=== PATIENT | female | born 1945 | race Caucasian/White ===

== ENCOUNTER 2022-03-20 11:02 | Inpatient (IN) | payer MEDICARE ==
[2022-03-20] MEDS ORDERED: Amiodarone 150 MG/3 ML VIAL ONE ×2 (11:28→17:03)
[2022-03-20 12:09] LABS: #Eosinphils 0.1 thou/uL (0.0-0.7); #Lymphocytes 1.4 thou/uL (1.20-3.40); #Monocytes 0.6 thou/uL (0.11-0.59); #Neutrophils 5.3 thou/uL (1.40-6.50); %Basophils 0.4 % (0.0-1.0); %Eosinophils 1.6 % (0.0-10.0); %Lymphocytes 18.3 % (21.0-51.0); %Monocytes 8.3 % (0.0-10.0); %Neutrophils 71.4 % (42.0-75.0); Hemoglobin 9.8 g/dL (12.0-16.0); Mean Corpuscular HGB CONC 30.7 g/dL (32.0-36.0); Mean Corpuscular Hemoglobin 22.2 pg (27.0-31.0); Mean Corpuscular Volume 72.2 fL (78.0-98.0); Mean Platelet Volume 9.3 fL (7.4-10.4); Platelet Count 267 thou/uL (130-400); RBC Distribution Width 17.1 % (11.5-14.5); Red Blood Cell (RBC) Count 4.43 mill/uL (4.20-5.40); White Blood Cell (WBC) Count 7.4 thou/uL (4.8-10.8)
[2022-03-20] MEDS ORDERED: Aspirin Chewable 81 MG TAB ONE (12:16)
[2022-03-20 12:19] LABS: INR-International Normal Ratio 1.1; PTT 33.7 sec (22.9-36.1); Prothrombin Time 13.8 sec (12.0-14.7)
[2022-03-20 12:42] LABS: ALT (SGPT) Less than 7 U/L (8-55); AST (SGOT) 11 U/L (5-34); Albumin 3.5 g/dL (3.4-4.8); Alkaline Phosphatase 77 U/L (40-110); Anion Gap 14 mmol/L (10-20); BUN (Urea Nitrogen) 19 mg/dL (9.8-20.1); Bilirubin, Total 0.4 mg/dL (0.2-1.2); Calc. Creatinine Clearance 0 mL/min (70-130); Carbon Dioxide 23 mmol/L (23-31); Chloride 104 mmol/L (98-107); Glucose 223 mg/dL (83-110); Magnesium 1.8 mg/dL (1.6-2.6); Potassium 3.5 mmol/L (3.5-5.1); Protein, Total 6.5 g/dL (5.8-8.1); Sodium 137 mmol/L (136-145)
[2022-03-20 15:34] LABS: Troponin I 0.026 ng/mL (< 0.028)
[2022-03-20 15:56] LABS: SARS-CoV-2 NAA Rapid Test Not Detected (NotDetected)
[2022-03-20] MEDS ORDERED: Dextrose 50% Abboject 50 ML SYRINGE SLOW IVP PRN (17:00)
[2022-03-20] MEDS ORDERED: HumaLOG 300 UNITS/3 ML VIAL SC PRN (17:00)
[2022-03-20] MEDS ORDERED: Dextrose 5% in Water 1,000 ML IV PRN (17:00)
[2022-03-20 18:21] VITALS: BMI 26.6
[2022-03-20] MEDS: Amiodarone In Dextrose 200 ML IVPB SCH (18:29)
[2022-03-20 18:50] LABS: Troponin I 0.025 ng/mL (< 0.028)
[2022-03-20] MEDS: Senokot S 8.6-50 MG TAB PO SCH (21:58)
[2022-03-21] MEDS: Amiodarone In Dextrose 200 ML IVPB SCH (04:49)
[2022-03-21 05:05] LABS: ALT (SGPT) 9 U/L (8-55); AST (SGOT) 9 U/L (5-34); Albumin 3.3 g/dL (3.4-4.8); Alkaline Phosphatase 66 U/L (40-110); Anion Gap 13 mmol/L (10-20); BUN (Urea Nitrogen) 17 mg/dL (9.8-20.1); Bilirubin, Total 0.3 mg/dL (0.2-1.2); Calc. Creatinine Clearance 34 mL/min (70-130); Carbon Dioxide 24 mmol/L (23-31); Chloride 104 mmol/L (98-107); Globulin 2.7 g/dL (2.4-3.5); Glucose 229 mg/dL (83-110); Potassium 3.3 mmol/L (3.5-5.1); Sodium 138 mmol/L (136-145)
[2022-03-21] MEDS: HumaLOG 300 UNITS/3 ML VIAL SC PRN ×2 (06:43→18:09)
[2022-03-21] MEDS ORDERED: Potassium Chloride 20 MEQ TAB PO SCH (13:00)
[2022-03-21 15:07] LABS: Bilirubin Negative (Negative); Blood, Urine Trace (Negative); Clarity Extra Turbid (Clear); Glucose, Urine (Dipstick) 100 mg/dL (Negative); Ketone, Urine Trace mg/dL (Negative); Leukocyte Negative Leu/uL (Negative); Nitrite Negative (Negative); Protein, Urine (Dipstick) 100 mg/dL (Neg-Trace); Specific Gravity, Urine 1.027 (1.002-1.036); Urobilinogen Normal mg/dL (Less than 2); WBC/HPF 0-3 HPF (0-3); Yeast-Budding 2+ HPF (None Seen); pH, Urine 5.5 (5.0-9.0)
[2022-03-21] MEDS: Pramipexole Di-HCl 0.25 MG TAB PO SCH ×2 (15:08→20:22)
[2022-03-21] MEDS: Carbidopa/Levodopa 25-100 mg Tablet PO SCH ×2 (15:08→20:23)
[2022-03-21 15:16] LABS: Bacteria/HPF 2+ HPF (None Seen); Urine Culture Reflex No No; Yeast-Hyphae Rare HPF (None Seen)
[2022-03-21] MEDS: Amiodarone 450 MG in Dextrose 5% in Water 250 ML IVPB SCH (19:36)
[2022-03-21] MEDS: Sacubitril 49 MG/Valsartan 51 MG TABLET PO SCH (20:22)
[2022-03-21] MEDS: Senokot S 8.6-50 MG TAB PO SCH (20:22)
[2022-03-22 03:30] LABS: #Eosinphils 0.2 thou/uL (0.0-0.7); #Lymphocytes 1.5 thou/uL (1.20-3.40); #Monocytes 0.7 thou/uL (0.11-0.59); #Neutrophils 4.8 thou/uL (1.40-6.50); %Basophils 0.2 % (0.0-1.0); %Eosinophils 2.7 % (0.0-10.0); %Lymphocytes 20.5 % (21.0-51.0); %Monocytes 9.4 % (0.0-10.0); %Neutrophils 67.1 % (42.0-75.0); Hemoglobin 9.1 g/dL (12.0-16.0); Mean Corpuscular HGB CONC 31.1 g/dL (32.0-36.0); Mean Corpuscular Hemoglobin 22.9 pg (27.0-31.0); Mean Corpuscular Volume 73.6 fL (78.0-98.0); Mean Platelet Volume 9.6 fL (7.4-10.4); Platelet Count 265 thou/uL (130-400); RBC Distribution Width 17.7 % (11.5-14.5); Red Blood Cell (RBC) Count 3.96 mill/uL (4.20-5.40); White Blood Cell (WBC) Count 7.1 thou/uL (4.8-10.8)
[2022-03-22 03:55] LABS: Anion Gap 14 mmol/L (10-20); BUN (Urea Nitrogen) 12 mg/dL (9.8-20.1); Calc. Creatinine Clearance 40 mL/min (70-130); Calcium 8.3 mg/dL (7.8-10.44); Carbon Dioxide 23 mmol/L (23-31); Chloride 102 mmol/L (98-107); Glucose 286 mg/dL (83-110); Magnesium 1.5 mg/dL (1.6-2.6); Potassium 3.4 mmol/L (3.5-5.1); Sodium 136 mmol/L (136-145)
[2022-03-22] MEDS: Carbidopa/Levodopa 25-100 mg Tablet PO SCH ×3 (06:14→21:13)
[2022-03-22] MEDS: HumaLOG 300 UNITS/3 ML VIAL SC PRN ×3 (06:15→17:26)
[2022-03-22] MEDS ORDERED: Potassium Chloride 20 MEQ TAB PO SCH (07:30)
[2022-03-22] MEDS ORDERED: Electrolyte Replacement Protocol 1 EACH FS SCH (07:30)
[2022-03-22] MEDS ORDERED: Magnesium 2 GM/50 ML(in water) 2 GM in Premix Bag 1 BAG IVPB SCH (07:30)
[2022-03-22] MEDS ORDERED: Electrolyte Replacement Protocol FS PRN (07:45)
[2022-03-22] MEDS ORDERED: Insulin Glargine 30 UNITS/0.3 ML VIAL SC SCH ×2 (09:00)
[2022-03-22] MEDS: Magnesium Oxide 400 MG TAB PO SCH (09:44)
[2022-03-22] MEDS: Aspirin 81 mg Enteric Coated Tablet PO SCH (09:44)
[2022-03-22] MEDS: Pramipexole Di-HCl 0.25 MG TAB PO SCH ×3 (09:44→21:13)
[2022-03-22] MEDS: Sacubitril 49 MG/Valsartan 51 MG TABLET PO SCH ×2 (09:44→21:13)
[2022-03-22] MEDS: Heparin 5,000 UNITS/ML VIAL SC SCH ×2 (09:45→21:13)
[2022-03-22] MEDS: Polyethylene Glycol 3350 17 GM Packet PO SCH (09:46)
[2022-03-22] MEDS: Acetaminophen 325 MG TAB PO PRN (17:25)
[2022-03-22] MEDS: Atorvastatin Calcium 40 MG TAB PO SCH (21:13)
[2022-03-22] MEDS: Senokot S 8.6-50 MG TAB PO SCH (21:14)
[2022-03-23] MEDS: Ondansetron PF 4 MG/2 ML Vial IVP PRN (03:08)
[2022-03-23] MEDS: Amiodarone 450 MG in Dextrose 5% in Water 250 ML IVPB SCH (03:44)
[2022-03-23] MEDS: Carbidopa/Levodopa 25-100 mg Tablet PO SCH ×3 (05:26→22:06)
[2022-03-23 05:58] LABS: Anion Gap 13 mmol/L (10-20); BUN (Urea Nitrogen) 22 mg/dL (9.8-20.1); Calc. Creatinine Clearance 25 mL/min (70-130); Calcium 8.4 mg/dL (7.8-10.44); Carbon Dioxide 24 mmol/L (23-31); Chloride 103 mmol/L (98-107); Glucose 258 mg/dL (83-110); Magnesium 2.2 mg/dL (1.6-2.6); Potassium 4.1 mmol/L (3.5-5.1); Sodium 136 mmol/L (136-145)
[2022-03-23] MEDS: HumaLOG 300 UNITS/3 ML VIAL SC PRN ×3 (06:00→18:32)
[2022-03-23] MEDS ORDERED: Communication Order-Pharmacy FS SCH ×2 (08:45→17:15)
[2022-03-23] MEDS ORDERED: Sodium Chloride 0.9% 1,000 ML IV SCH (08:45)
[2022-03-23] MEDS ORDERED: Insulin Glargine 30 UNITS/0.3 ML VIAL SC SCH (09:00)
[2022-03-23] MEDS: Aspirin 81 mg Enteric Coated Tablet PO SCH (09:48)
[2022-03-23] MEDS: Magnesium Oxide 400 MG TAB PO SCH (09:53)
[2022-03-23] MEDS: Pramipexole Di-HCl 0.25 MG TAB PO SCH ×3 (09:54→22:07)
[2022-03-23] MEDS: Polyethylene Glycol 3350 17 GM Packet PO SCH (09:54)
[2022-03-23] MEDS: Heparin 5,000 UNITS/ML VIAL SC SCH ×2 (09:55→22:09)
[2022-03-23 17:05] LABS: Bacteria/HPF 2+ HPF (None Seen); Bilirubin Negative (Negative); Blood, Urine 2+ (Negative); Clarity Extra Turbid (Clear); Glucose, Urine (Dipstick) Normal (Negative); Ketone, Urine Negative (Negative); Leukocyte 500 Leu/uL (Negative); Nitrite Negative (Negative); Protein, Urine (Dipstick) 100 mg/dL (Neg-Trace); Specific Gravity, Urine 1.027 (1.002-1.036); Squamous Epithelial 0-3 HPF (0-3); Urobilinogen Normal mg/dL (Less than 2); Yeast-Budding 2+ HPF (None Seen); pH, Urine 5.5 (5.0-9.0)
[2022-03-23] MEDS ORDERED: methylPREDNISolone Sod Succ/PF 125 MG/2 ML VIAL IVP PRN (17:11)
[2022-03-23 17:13] LABS: Yeast-Hyphae 2+ HPF (None Seen)
[2022-03-23 17:14] LABS: Urine Culture Reflex Yes Yes
[2022-03-23] MEDS: Sodium Chloride 0.9% 1,000 ML IV SCH (18:28)
[2022-03-23] MEDS: Senokot S 8.6-50 MG TAB PO SCH (22:06)
[2022-03-23] MEDS: Atorvastatin Calcium 40 MG TAB PO SCH (22:07)
[2022-03-24] MEDS: Sodium Chloride 0.9% 1,000 ML IV SCH ×2 (04:45→14:48)
[2022-03-24 05:21] LABS: Anion Gap 13 mmol/L (10-20); BUN (Urea Nitrogen) 19 mg/dL (9.8-20.1); Calc. Creatinine Clearance 41 mL/min (70-130); Carbon Dioxide 24 mmol/L (23-31); Chloride 105 mmol/L (98-107); Potassium 3.6 mmol/L (3.5-5.1); Sodium 138 mmol/L (136-145)
[2022-03-24 05:22] LABS: Calcium 8.6 mg/dL (7.8-10.44); Glucose 127 mg/dL (83-110); Magnesium 1.6 mg/dL (1.6-2.6)
[2022-03-24] MEDS: Pramipexole Di-HCl 0.25 MG TAB PO SCH ×3 (05:27→21:08)
[2022-03-24] MEDS: Magnesium Oxide 400 MG TAB PO SCH (05:27)
[2022-03-24] MEDS: Aspirin 81 mg Enteric Coated Tablet PO SCH (05:27)
[2022-03-24] MEDS: Carbidopa/Levodopa 25-100 mg Tablet PO SCH ×3 (05:28→21:08)
[2022-03-24] MEDS ORDERED: diphenhydrAMINE 50 MG CAP PO SCH (06:00)
[2022-03-24] MEDS ORDERED: Famotidine 40 MG/4 ML VIAL SLOW IVP SCH (06:00)
[2022-03-24] MEDS: Amiodarone 200 MG TAB PO SCH (08:50)
[2022-03-24] MEDS ORDERED: Heparin 10,000 UNITS/ 10 ML VIAL ONE (10:59)
[2022-03-24] MEDS ORDERED: Verapamil 5 MG/2 ML VIAL ONE (10:59)
[2022-03-24] MEDS ORDERED: Nitroglycerin 100MG/250ML BOT 250 ML ONE (10:59)
[2022-03-24] MEDS ORDERED: Famotidine/PF 20 mg/2ml Vial ONE (10:59)
[2022-03-24] MEDS ORDERED: Lidocaine 1% (PF) 30 ML VIAL ONE (11:01)
[2022-03-24] MEDS: Polyethylene Glycol 3350 17 GM Packet PO SCH (11:19)
[2022-03-24] MEDS ORDERED: methylPREDNISolone Sod Succ/PF 125 MG/2 ML VIAL IVP PRN (11:22)
[2022-03-24] MEDS ORDERED: Magnesium 2 GM/50 ML(in water) 2 GM in Premix Bag 1 BAG IVPB SCH (11:45)
[2022-03-24] MEDS: Senokot S 8.6-50 MG TAB PO SCH (21:08)
[2022-03-24] MEDS: Atorvastatin Calcium 40 MG TAB PO SCH (21:08)
[2022-03-25] MEDS: Acetaminophen 325 MG TAB PO PRN (00:18)
[2022-03-25] MEDS: Sodium Chloride 0.9% 1,000 ML IV SCH (00:25)
[2022-03-25 04:56] LABS: #Eosinphils 0.2 thou/uL (0.0-0.7); #Lymphocytes 1.8 thou/uL (1.20-3.40); #Monocytes 0.6 thou/uL (0.11-0.59); #Neutrophils 3.5 thou/uL (1.40-6.50); %Basophils 0.2 % (0.0-1.0); %Eosinophils 3.2 % (0.0-10.0); %Monocytes 9.6 % (0.0-10.0); Mean Corpuscular HGB CONC 31.5 g/dL (32.0-36.0); Mean Corpuscular Hemoglobin 22.9 pg (27.0-31.0); Mean Corpuscular Volume 72.6 fL (78.0-98.0); Mean Platelet Volume 9.4 fL (7.4-10.4); Platelet Count 287 thou/uL (130-400); RBC Distribution Width 17.9 % (11.5-14.5); Red Blood Cell (RBC) Count 3.95 mill/uL (4.20-5.40); White Blood Cell (WBC) Count 6.1 thou/uL (4.8-10.8)
[2022-03-25 05:19] LABS: Anion Gap 13 mmol/L (10-20); BUN (Urea Nitrogen) 12 mg/dL (9.8-20.1); Calc. Creatinine Clearance 48 mL/min (70-130); Calcium 8.5 mg/dL (7.8-10.44); Carbon Dioxide 21 mmol/L (23-31); Chloride 106 mmol/L (98-107); Glucose 232 mg/dL (83-110); Magnesium 1.8 mg/dL (1.6-2.6); Potassium 4.2 mmol/L (3.5-5.1); Sodium 136 mmol/L (136-145)
[2022-03-25] MEDS: Carbidopa/Levodopa 25-100 mg Tablet PO SCH ×3 (06:15→20:54)
[2022-03-25] MEDS ORDERED: Magnesium 2 GM/50 ML(in water) 2 GM in Premix Bag 1 BAG IVPB SCH (08:00)
[2022-03-25] MEDS: Amiodarone 200 MG TAB PO SCH (09:42)
[2022-03-25] MEDS: Aspirin 81 mg Enteric Coated Tablet PO SCH (09:42)
[2022-03-25] MEDS: Magnesium Oxide 400 MG TAB PO SCH (09:42)
[2022-03-25] MEDS: Pramipexole Di-HCl 0.25 MG TAB PO SCH ×3 (09:42→20:54)
[2022-03-25] MEDS: Polyethylene Glycol 3350 17 GM Packet PO SCH (09:43)
[2022-03-25] MEDS: Sacubitril 49 MG/Valsartan 51 MG TABLET PO SCH ×2 (11:32→20:54)
[2022-03-25] MEDS: HumaLOG 300 UNITS/3 ML VIAL SC PRN ×2 (11:37→20:55)
[2022-03-25] MEDS ORDERED: Enoxaparin Sodium 40 MG/0.4 ML SYRINGE SC SCH (13:45)
[2022-03-25] MEDS ORDERED: methylPREDNISolone Acetate 40 mg/ml Vial IM SCH (16:15)
[2022-03-25] MEDS: Senokot S 8.6-50 MG TAB PO SCH (20:54)
[2022-03-25] MEDS: Atorvastatin Calcium 40 MG TAB PO SCH (20:54)
[2022-03-26] MEDS: Acetaminophen 325 MG TAB PO PRN (01:43)
[2022-03-26] MEDS: Carbidopa/Levodopa 25-100 mg Tablet PO SCH ×3 (05:58→21:17)
[2022-03-26] MEDS: HumaLOG 300 UNITS/3 ML VIAL SC PRN ×2 (06:35→11:41)
[2022-03-26] MEDS ORDERED: Insulin Glargine 30 UNITS/0.3 ML VIAL SC SCH (09:15)
[2022-03-26] MEDS: Aspirin 81 mg Enteric Coated Tablet PO SCH (09:23)
[2022-03-26] MEDS: Pramipexole Di-HCl 0.25 MG TAB PO SCH ×3 (09:23→21:16)
[2022-03-26] MEDS: Amiodarone 200 MG TAB PO SCH (09:23)
[2022-03-26] MEDS: Sacubitril 49 MG/Valsartan 51 MG TABLET PO SCH ×2 (09:23→21:17)
[2022-03-26] MEDS: Magnesium Oxide 400 MG TAB PO SCH (09:23)
[2022-03-26] MEDS: Polyethylene Glycol 3350 17 GM Packet PO SCH (09:24)
[2022-03-26] MEDS: Enoxaparin Sodium 40 MG/0.4 ML SYRINGE SC SCH (09:24)
[2022-03-26] MEDS: Insulin Glargine 30 UNITS/0.3 ML VIAL SC SCH (10:11)
[2022-03-26] MEDS: HYDROcodone/Acetaminophen 7.5/325 mg Tablet PO PRN ×2 (16:44→21:19)
[2022-03-26] MEDS ORDERED: diphenhydrAMINE 50 MG/ML VIAL IVP SCH (17:45)
[2022-03-26] MEDS: Atorvastatin Calcium 40 MG TAB PO SCH (21:16)
[2022-03-26] MEDS: Senokot S 8.6-50 MG TAB PO SCH (21:17)
[2022-03-27 04:45] LABS: Anion Gap 14 mmol/L (10-20); BUN (Urea Nitrogen) 11 mg/dL (9.8-20.1); Calc. Creatinine Clearance 51 mL/min (70-130); Calcium 8.8 mg/dL (7.8-10.44); Carbon Dioxide 23 mmol/L (23-31); Chloride 104 mmol/L (98-107); Glucose 256 mg/dL (83-110); Potassium 5.3 mmol/L (3.5-5.1); Sodium 136 mmol/L (136-145)
[2022-03-27 05:19] LABS: Band 6 % (5-11); Eosinophils 2 % (0-10); Hemoglobin 10.1 g/dL (12.0-16.0); Hypochromia SLIGHT = 6-15 cells (100X) (0-5/hpf); Lymphocytes 14 % (21-51); MDiff Complete? YES; Mean Corpuscular HGB CONC 29.1 g/dL (32.0-36.0); Mean Corpuscular Hemoglobin 22.4 pg (27.0-31.0); Mean Corpuscular Volume 76.8 fL (78.0-98.0); Mean Platelet Volume 9.8 fL (7.4-10.4); Monocytes 3 % (0-10); Neutrophil 75 % (42-75); Platelet Count 281 thou/uL (130-400); Platelet Morphology Comment Appears Adequate; RBC Distribution Width 18.4 % (11.5-14.5); White Blood Cell (WBC) Count 6.1 thou/uL (4.8-10.8)
[2022-03-27] MEDS: HumaLOG 300 UNITS/3 ML VIAL SC PRN ×4 (05:47→21:14)
[2022-03-27] MEDS: Aspirin 81 mg Enteric Coated Tablet PO SCH (05:47)
[2022-03-27] MEDS: Sacubitril 49 MG/Valsartan 51 MG TABLET PO SCH ×2 (05:47→21:13)
[2022-03-27] MEDS: Amiodarone 200 MG TAB PO SCH (05:47)
[2022-03-27] MEDS: Carbidopa/Levodopa 25-100 mg Tablet PO SCH ×3 (05:47→21:14)
[2022-03-27] MEDS: Pramipexole Di-HCl 0.25 MG TAB PO SCH ×3 (05:47→21:14)
[2022-03-27] MEDS: Ondansetron PF 4 MG/2 ML Vial IVP PRN (06:44)
[2022-03-27] MEDS ORDERED: Lidocaine 1% PF 5 ML VIAL ONE (08:45)
[2022-03-27] MEDS ORDERED: Sodium Chloride 0.9% 1,000 ML IV SCH (08:45)
[2022-03-27] MEDS ORDERED: Nitroglycerin 100MG/250ML BOT 250 ML ONE (09:13)
[2022-03-27] MEDS ORDERED: Heparin 10,000 UNITS/ 10 ML VIAL ONE (09:13)
[2022-03-27] MEDS ORDERED: Verapamil 5 MG/2 ML VIAL ONE (09:13)
[2022-03-27] MEDS ORDERED: Midazolam HCl 2 mg/2 ml Vial ONE (09:19)
[2022-03-27] MEDS ORDERED: Fentanyl 100 MCG/2 ML VIAL ONE (09:19)
[2022-03-27] MEDS ORDERED: Atropine Sulfate 1 mg/1 ml Vial ONE (09:37)
[2022-03-27] MEDS ORDERED: Atropine Sulfate 1 mg/10 ml Syringe ONE (09:38)
[2022-03-27] MEDS ORDERED: PHENYLEPHRINE-NS 100 MCG/ML 10 ML SYRINGE ONE (09:39)
[2022-03-27] MEDS: Magnesium Oxide 400 MG TAB PO SCH (10:25)
[2022-03-27] MEDS: Acetaminophen 325 MG TAB PO PRN (10:25)
[2022-03-27] MEDS: Polyethylene Glycol 3350 17 GM Packet PO SCH (10:26)
[2022-03-27] MEDS: Enoxaparin Sodium 40 MG/0.4 ML SYRINGE SC SCH (10:26)
[2022-03-27] MEDS ORDERED: Iopamidol 370 76% 100 ML VIAL ONE (10:33)
[2022-03-27] MEDS ORDERED: Sodium Chloride 0.9% 200 ML IV PRN (11:49)
[2022-03-27] MEDS ORDERED: Acetaminophen/Codeine 30-300mg Tablet PO PRN (11:49)
[2022-03-27] MEDS ORDERED: Sodium Chloride 0.9% 250 ML IV SCH (12:00)
[2022-03-27] MEDS: HYDROcodone/Acetaminophen 7.5/325 mg Tablet PO PRN ×2 (13:57→21:16)
[2022-03-27] MEDS: Atorvastatin Calcium 40 MG TAB PO SCH (21:13)
[2022-03-27] MEDS: Senokot S 8.6-50 MG TAB PO SCH (21:14)
[2022-03-28] MEDS: HYDROcodone/Acetaminophen 7.5/325 mg Tablet PO PRN (05:06)
[2022-03-28] MEDS: Carbidopa/Levodopa 25-100 mg Tablet PO SCH ×3 (05:06→21:10)
[2022-03-28] MEDS: HumaLOG 300 UNITS/3 ML VIAL SC PRN ×2 (05:31→15:12)
[2022-03-28] MEDS: Ondansetron PF 4 MG/2 ML Vial IVP PRN (06:23)
[2022-03-28] MEDS: Amiodarone 200 MG TAB PO SCH (08:43)
[2022-03-28] MEDS: Sacubitril 49 MG/Valsartan 51 MG TABLET PO SCH ×2 (08:44→21:09)
[2022-03-28] MEDS: Magnesium Oxide 400 MG TAB PO SCH (09:10)
[2022-03-28] MEDS: Pramipexole Di-HCl 0.25 MG TAB PO SCH ×3 (09:11→21:10)
[2022-03-28] MEDS: Aspirin 81 mg Enteric Coated Tablet PO SCH (09:11)
[2022-03-28] MEDS: Polyethylene Glycol 3350 17 GM Packet PO SCH (09:14)
[2022-03-28] MEDS: Insulin Glargine 30 UNITS/0.3 ML VIAL SC SCH (09:21)
[2022-03-28] MEDS: Enoxaparin Sodium 40 MG/0.4 ML SYRINGE SC SCH (09:23)
[2022-03-28] MEDS ORDERED: Amiodarone 200 MG TAB PO SCH (21:00)
[2022-03-28] MEDS: Atorvastatin Calcium 40 MG TAB PO SCH (21:11)
[2022-03-28] MEDS: Senokot S 8.6-50 MG TAB PO SCH (21:11)
[2022-03-28 23:57] VITALS: BP 107/57; TEMP 99.1
== END 2022-03-29 00:24 | DRG 286 ==
LOC: ERS 11:02 → ERHOLD 13:28 → CCU 17:14 → 2NO 03-22 18:33
PROVIDERS: ADMIT Hospitalist; ATTEND Internal Medicine
PROC: 4A023N7 Measurement of Cardiac Sampling and Pressure, Left Heart, Percutaneous Approach (ICD-10-PCS; principal; 2022-03-27)
PROC: B2111ZZ Fluoroscopy of Multiple Coronary Arteries using Low Osmolar Contrast (ICD-10-PCS; 2022-03-27)
DX: I47.2 Ventricular tachycardia (principal); I50.23 Acute on chronic systolic (congestive) heart failure; I13.0 Hypertensive heart and chronic kidney disease with heart failure and stage 1 through stage 4 chronic kidney disease, or unspecified chronic kidney disease; N17.9 Acute kidney failure, unspecified; N18.4 Chronic kidney disease, stage 4 (severe); N39.0 Urinary tract infection, site not specified; I25.5 Ischemic cardiomyopathy; R00.1 Bradycardia, unspecified; E87.6 Hypokalemia; E83.42 Hypomagnesemia; G20 Parkinson's disease; D63.1 Anemia in chronic kidney disease; E11.22 Type 2 diabetes mellitus with diabetic chronic kidney disease; R33.9 Retention of urine, unspecified; K21.9 Gastro-esophageal reflux disease without esophagitis; I05.0 Rheumatic mitral stenosis; E78.5 Hyperlipidemia, unspecified; H54.8 Legal blindness, as defined in USA; H35.30 Unspecified macular degeneration; Z20.822 Contact with and (suspected) exposure to COVID-19; Z87.440 Personal history of urinary (tract) infections; Z90.49 Acquired absence of other specified parts of digestive tract; Z90.710 Acquired absence of both cervix and uterus; Z98.890 Other specified postprocedural states; Z79.899 Other long term (current) drug therapy; Z79.82 Long term (current) use of aspirin; Z79.4 Long term (current) use of insulin; Z88.0 Allergy status to penicillin; Z88.8 Allergy status to other drugs, medicaments and biological substances; Z91.041 Radiographic dye allergy status; Z88.1 Allergy status to other antibiotic agents
CPT/HCPCS: 36415; 36416; 51701; 71045; 76770; 80048; 80053; 81001; 83735; 83880; 84443; 84484; 85025; 85610; 85730; 87086; 93005; 93306; 93454; 93798; 94760; 96374; 99152; J0282; J0461; J1644; J1650; J1815; J2001; J2250; J2405; J2920; J3010; J3475; J7030; J7050; J7070; Q9967; S0028; U0003; U0005